=== PATIENT | female | born 1960 | race Caucasian/White ===

== ENCOUNTER → 2018-02-15 | Day surgery (SDC) | payer OTHER ==
[~2018-02-15] VITALS: Ht 162.6 cm; Wt 101.6 kg
[~2018-02-15] MED LIST: *morphine SULFATE 8 MG/ML PERIprocedure ONLY ONE; CALC600T10 PO; CHLORHEXIDINE GLUCONATE 2 % 1 PACK (2 CLOTHS) TOPICAL PRN; DEXAMETHASONE SOD PHOS 4 MG/ML VIAL IV ONE; DO NOT ADM ANY ANTICOAGULANT DRUGS PRN; FERR325T18 PO; FOLI800T PO; LACTATED RINGER'S 1000 ML IV PRN; LIDOCAINE HCL 1% PF 5 ML SYRINGE OTHER ONE; MAGN400T3 PO; METOPROLOL TARTRATE 25 MG TAB PO PRN; MIDAZOLAM HCL 2 MG/2 ML VIAL ONE; MULTTAB67 PO; ONDANSETRON HCL 4 MG/2 ML VIAL IV ONE; POVIDONE IODINE 5% (ANTISEPSIS KIT) 4 APPLICATIONS EACH NARE PRN; PROPOFOL 200 MG/20 ML AMP IV ONE; SODIUM CHLORID 0.9% 500 ML IV PRN; SODIUM CHLORIDE 0.9% INJ 100 ML ONE; VITA100021 IM; VITA200C3 PO; ceFAZolin 1,000 MG/NS 100 ML IV SCH; ceFAZolin INJ 1,000 MG VIAL ONE; oxyCODONE/ACETAMINOPHEN 5 MG/325 MG TAB PO PRN
--- NOTE | 2018-02-15 07:51 | PD.OP ---
Operative Report Date of Surgery: Feb 15, 2018 Preoperative Diagnosis: (1) Postmenopausal bleeding (2) Polyp of corpus uteri (3) Intramural leiomyoma of uterus (4) Pelvic and perineal pain Postoperative Diagnosis: (1) Postmenopausal bleeding (2) Polyp of corpus uteri (3) Intramural leiomyoma of uterus (4) Pelvic and perineal pain Procedure: 1. hysteroscopy 2. polypectomy 3. D&C Anesthesia: MAVERICK Surgeon: Jane Lynn [employer]ation Officer(s): OR staff Operation and Findings: IVF: 400 ml + Iv antibiotics given prior to surgery EBL: < 10 ml UO: 20 ml Findings: endometrial polyp, vascular lining Specimens: endometrial polyp, endometrial curettings Complications: none Condition: stable Disposition: PACU Description of the procedure: The risks, benefits and alternatives of the procedure were discussed with the patient. Her questions were answered. The patient signed informed consent and wished to proceed. She was taken to the operating room with her IV running. She was placed in the supine position and was given general anesthesia without difficulties or complications. IV antibiotics were given. The patient was placed in the dorsal lithotomy position and was prepped and draped in the usual sterile fashion. A bivalve speculum was introduced inside the patient's vagina. The anterior aspect of the cervix was grasped with a single tooth tenaculum for manipulation. The cervix was carefully dilated. A 5 mm Myosure hysteroscope was introduced inside the patient's uterus. The cavity was noted to be very vascular. A polyp was noted on the right side of the uterus. The polyp was removed with Myosure instrument. In addition, multiple biopsies were done with Myosure instrument. Next, a careful curettage was done with a sharp curet. The tissues were sent to pathology. All the instruments were removed from the patient's uterus. Pressure was placed at the tenaculum site for hemostasis. All the instruments were removed from the patient's vagina. She tolerated the procedure well; she was successfully awaken from general anesthesia and was transferred to PACU in stable condition. Note: I discussed the surgical findings and surgical procedures with patient's friend. Her questions were answered. She verbalized understanding and agreement to the procedures done. Jane Lynn MD Feb 15, 2018 07:51
[2018-02-15 15:50] VITALS: BP 101/62; PULSE 84; RESP 18; TEMP 98.1; O2SAT 97
--- NOTE | 2018-02-16 15:12 | EKG ---
Date Performed: 02/15/2018 Time Performed: 13:08:42 PTAGE: 57 years EKG: Sinus rhythm NORMAL ECG NO PREVIOUS TRACING DOCTOR: Yordy Pandya Interpretating Date/Time 02/16/2018 15:08:42
== END | disposition home or self-care (01) ==
LOC: HSDC 12:38
PROVIDERS: ATTEND Obstetrics & Gynecology
DX: N95.0 Postmenopausal bleeding (principal); N84.0 Polyp of corpus uteri; D25.1 Intramural leiomyoma of uterus; R10.2 Pelvic and perineal pain; Z01.810 Encounter for preprocedural cardiovascular examination
CPT/HCPCS: 00952; 58558; 88305; 93005; J0690; J1100; J2250; J2270; J2405; J3010; J7120